=== PATIENT | female | born 1990 | race Caucasian/White ===

== ENCOUNTER 2018-07-31 12:39 | Emergency (ER) | payer OTHER ==
--- NOTE | 2018-07-31 13:12 | EDPHY ---
General Time Seen by Provider: 07/31/18 13:09 Narrative: CLINICAL IMPRESSION: Right foot laceration ASSESSMENT/PLAN: Patient is a 28-year-old female with no significant medical history who presents to the emergency department with complaints of a laceration to her right foot. Patient is not toxic appearing, she is in no distress. Physical examination reveals a 3 cm laceration in the shape of a reverse V inferior to her Achilles tendon on the back of the calcaneus. There is no evidence of deep structure involvement, neurovascular compromise, foreign body, or bony involvement. The wound was not contaminated, tetanus status was updated today. The wound was irrigated and then repaired as discussed in the procedure note, the patient tolerated this well. Wound care instructions discussed with patient. She will return to the emergency department in 7-10 days for suture removal. Return precautions discussed- she will return for increased pain, signs of infection, fever, vomiting, if the wound opens or for any other concerns. Patient and family member both verbalize understanding and are in agreement with plan. DIFFERENTIAL DIAGNOSIS: includes but not limited to laceration of tendon or vascular structure, underlying fracture, laceration with retained FB ED PROCEDURES: Laceration Repair Verbal consent obtained by patient. Risks discussed, including but not limited to infection, pain, retained foreign body, need for additional repair, poor cosmetic result, tendon damage, nerve damage, poor wound healing, vascular damage. Alternatives to repair discussed. [place] protocol used to establish correct patient, procedure, equipment, sales support technician, and site. Anesthesia obtained by local infiltration. Anesthetized with 1% lidocaine with epinephrine. Laceration location posterior right calcaneus inferior to the Achilles tendon, length 3 cm, depth 5 mm, Repair type simple. Patient was prepped and draped in usual sterile fashion. Hemostasis achieved with direct pressure. Wound explored through full range of motion and entire depth of wound probed and visualized with gloved finger. No suspicion for nerve damage, tendon damage, underlying fracture, vascular damage, foreign body, or contamination. Area was cleansed with Shur-Clens and irrigated with sterile saline as per protocol. No foreign body or material removed. Repair method 4.0 Prolene, interrupted. Seven sutures placed. Well aligned, closely approximated. wound was dressed with antibiotic ointment and a sterile dressing. Patient tolerated well with no immediate complications. Wound care: Clean and dry x 24 hours, gently clean with soap and water, cover with topical antibiotic ointment/bandage. Suture/Staple removal: 7-10 Days CHIEF COMPLAINT: Laceration HPI: Patient is a 28-year-old female with no significant medical history who presents to the emergency department with complaints of a right heel laceration sustained just prior to arrival. Patient works at [employer] in [place] area, a cart started moving quickly when she put her foot in front of it subsequently sustaining a laceration to the back of her heel just below her Achilles tendon. Patient was able to get the bleeding under control. She denies any numbness or tingling of the area or foot. She denies any other injury or complaint. She is not up-to-date on her tetanus. PAST MEDICAL HISTORY: Denies Social History: Denies smoking or illicit drug use REVIEW OF SYSTEMS: All other systems negative Constitutional: No fever, no chills Musculoskeletal: No deformity, no joint pain Skin: Right heel laceration Neurological: No sensory loss or weakness. PHYSICAL EXAM: General Appearance: Alert, oriented, appropriate for age, cooperative, NAD, well hydrated, non-toxic appearing, VSS, no hypoxia. Neurological: Alert and oriented x 3, Neurological exam grossly normal no focal deficit. Skin: 3 cm laceration right posterior foot inferior to the Achilles tendon overlying the posterior calcaneus. Otherwise warm and dry. Upper Extremities: Intact distal pulses, Full range of motion intact, no tenderness, no ecchymosis or edema Lower Extremities: Intact distal pulses, No edema, No tenderness, No cyanosis, full range of motion intact, No calf tenderness bilaterally. In particular the right ankle and foot are nontender with full range of motion, ambulates without difficulty. MEDICAL DECISION MAKING: Patient was seen independently. Secondary supervising physician at time of evaluation was Dr. Barron, he did not evaluate this patient. Diagnosis: Right foot laceration. New, requires workup Summary: See assessment and plan for summary of ED visit Clinical lab tests: Not applicable. Independent visualization of images, tracing, or specimens not applicable. Decision to obtain medical records or history from someone other than the patient: No Review / Summarize previous medical records: Yes Dispo: Discharged to home. - History Smoking Status: Former smoker - Objective Vital Signs: Initial Vital Signs Temperature (C) 36.7 C 07/31/18 12:41 Heart Rate 53 L 07/31/18 12:41 Respiratory Rate 16 07/31/18 12:41 Blood Pressure 107/65 07/31/18 12:41 O2 Sat (%) 99 07/31/18 12:41 O2 Delivery Mode Room Air Allergies/Adverse Reactions: No Known Allergies Allergy (Unverified 07/31/18 12:44) Home Medications: Medication Instructions Recorded NK [No Known Home Meds] 07/31/18 Medications Given: Discontinued Medications Diphtheria/Tetanus/Acell Pertussis (Boostrix) 0.5 ml IM .ONCE ONE Stop: 07/31/18 13:16 Last Admin: 07/31/18 13:23 Dose: 0.5 ml Departure - Departure Disposition: Home, Routine, Self-Care Clinical Impression: Laceration of foot Qualifiers: Encounter type: initial encounter Laterality: right Qualified Code(s): S91.311A - Laceration without foreign body, right foot, initial encounter Condition: Good Instructions: Laceration (ED) Additional Instructions: DISCHARGE INSTRUCTIONS FROM YOUR DOCTOR Thank you for visiting our emergency department today. Please keep in mind that discharge from the emergency department does not mean that there is nothing wrong - it simply means that we have not identified an emergency condition that requires further evaluation or treatment in the hospital. You should always plan to follow up with primary care for re-evaluation of your condition in the next 2-3 days. Keep wound clean and dry for 24 hours. Then remove dressing, clean at least twice daily or when soiled with soap and water, apply antibiotic ointment and dressing. Do not soak the wound while the stitches are in place. Anticipate suture removal in 7-10 days. For pain control: You may take Tylenol, I recommend 500-1000 mg every 6-8 hours as needed. Take with food and a full glass of water. Stop taking if this is upsetting her stomach. Do not exceed 4000 mg in a 24 hr period. You may also take ibuprofen, recommend 400 mg every 6 hr. Take with food and a full glass of water. Stop taking if this upsets her stomach. Do not exceed 2400 mg in a 24 hr period. Return for signs of wound infection ie: redness, swelling, drainage, foul odor, red streaks, fever, chills, pain, bleeding, if the stitches pop, if the wound opens or for any other new, worsening or worrisome symptoms. People present with illnesses and injuries in different ways, and it is always possible that we have missed something. You may always return for re-evaluation if symptoms worsen or if they are not improving or if you develop new/different symptoms. Again, thank you for choosing our emergency department. We hope that you feel better. Referrals: Brayden Rowe DO [Doctor of Osteopathy] - As per Instructions (Please establish care with a primary care provider if you do not have 1. ) ED,PHYSICIAN BRIA [Medical Doctor] - As per Instructions (Return to the emergency department in 7-10 days for suture removal)
[2018-07-31] MEDS ORDERED: TDAP ADULT 0.5 ML INJ (BOOSTRIX) IM ONE (13:15)
[2018-07-31 14:19] VITALS: BP 110/78
== END 2018-07-31 14:24 | disposition home or self-care (01) ==
PROC: 0HQMXZZ Repair Right Foot Skin, External Approach (ICD-10-PCS; principal; 2018-07-31)
DX: S91.311A Laceration without foreign body, right foot, initial encounter (principal); Z23 Encounter for immunization; W22.8XXA Striking against or struck by other objects, initial encounter; Y99.0 Civilian activity done for income or pay